=== PATIENT | male | born 2000 | race African-American/Black ===

== ENCOUNTER 2023-08-16 23:42 | Emergency (ER) | payer SELFPAY ==
[2023-08-17] MEDS ORDERED: Lidocaine 1% w/Epinephrine 1:200K 30 ML VIAL ONE (00:05)
[2023-08-17] MEDS ORDERED: Boostrix 0.5 ML (Tdap) VIAL (>/=7 yrs of age) ONE (00:11)
[2023-08-17] MEDS ORDERED: Triple Antibiotic Oint 1 GM Packet ONE (00:20)
== END 2023-08-17 00:44 | disposition home or self-care (01) ==
LOC: CSHERS 23:42
DX: S01.112A Laceration without foreign body of left eyelid and periocular area, initial encounter (principal); Z23 Encounter for immunization; W19.XXXA Unspecified fall, initial encounter
CPT/HCPCS: 12011; 90471; 90715